=== PATIENT | male | born 1950 | race Two or more races ===

== ENCOUNTER 2016-06-16 00:02 | Emergency (ER) | payer MEDICARE, OTHER ==
[~2016-06-16] VITALS: Ht 170.2 cm; Wt 44.9 kg
[2016-06-16] MEDS ORDERED: HYDROCODONE/APAP 10/325MG 1 EA TABLET ONE (03:06)
[2016-06-16] MEDS ORDERED: HYDROCODONE/APAP 10/325MG 1 EA TABLET PO ONE (03:30)
[2016-06-16 04:03] VITALS: BP 106/53
== END 2016-06-16 04:03 | disposition home or self-care (01) ==
LOC: ER 00:04
DX: M54.5 Low back pain (principal); G89.29 Other chronic pain; I10 Essential (primary) hypertension; J45.909 Unspecified asthma, uncomplicated
CPT/HCPCS: 99283; A4606; Z7610

== ENCOUNTER 2020-11-22 11:33 | Inpatient (IN) | payer MEDICARE, OTHER ==
[~2020-11-22] VITALS: Ht 170.2 cm; Wt 57.6 kg
[2020-11-22] MEDS ORDERED: IV NS 0.9% 1,000 ML BAG IV ONE (12:00)
[2020-11-22 12:19] LABS: BASOPHILS % (AUTO) 0.8 % (0.0-2.0); EOSINOPHILS % (AUTO) 4.9 % (0.0-6.0); HEMATOCRIT 36 % (39-51); LYMPHOCYTES # (AUTO) 1.6 /CMM (0.8-4.8); LYMPHOCYTES % (AUTO) 31.4 % (20.0-44.0); MEAN CORPUSCULAR HGB CONC 33 g/dl (31.0-36.0); MEAN CORPUSCULAR VOLUME 91 fL (80-96); MONOCYTES # (AUTO) 0.7 /CMM (0.1-1.30); MONOCYTES % (AUTO) 13.9 % (2.0-12.0); NEUTROPHILS # (AUTO) 2.4 /CMM (1.8-8.9); PLATELET COUNT (AUTO) 223 /CMM (150-450); RED BLOOD CELL COUNT(AUTO) 3.97 MIL/uL (4.5-6.0)
[2020-11-22 12:20] LABS: BILIRUBIN,URINE Negative (NEGATIVE); COLOR,URINE YELLOW (YELLOW); LEUKOCYTE ESTERASE ,URINE Small (NEGATIVE); NITRITE, URINE Positive (NEGATIVE); PROTEIN,URINE Negative (NEGATIVE); UGLUCOSE Negative (NEGATIVE); UROBILINOGEN,URINE 0.2 EU/dL (0.2)
[2020-11-22 12:26] LABS: CALCIUM, SERUM 8.9 mg/dL (8.5-10.1); CARBON DIOXIDE 29 mmol/L (21-32); CHLORIDE 102 mmol/L (98-107); CREATININE 1.3 mg/dL (0.6-1.3); GLUCOSE 99 mg/dL (74-106); POTASSIUM 4.5 mmol/L (3.5-5.1); SODIUM SERUM 139 mmol/L (136-145); UREA NITROGEN, BLOOD 14 mg/dL (7-18)
[2020-11-22] MEDS ORDERED: CEFTRIAXONE 1GM BAG (ER ONLY) 50 ML IV ONE (12:37)
[2020-11-22 12:39] LABS: ALANINE AMINOTRANSFERASE 19 U/L (12-78); ALBUMIN 3.6 g/dL (3.4-5.0); ALKALINE PHOSPHATASE 84 U/L (46-116); ASPARTATE AMINOTRANSFERASE 16 U/L (15-37); BILIRUBIN,DIRECT 0.1 mg/dL (0.0-0.2); BILIRUBIN,TOTAL 0.4 mg/dL (0.2-1.0); LIPASE 96 U/L (73-393); TOTAL PROTEIN, SERUM 7.1 g/dL (6.4-8.2)
[2020-11-22 12:48] LABS: BACTERIA,URINE Few /HPF (None Seen); SQUAMOUS EPITHELIAL CELL,UR Rare /HPF (None Seen)
[2020-11-22] MEDS ORDERED: TADA5TAB2 PO (12:58)
[2020-11-22] MEDS ORDERED: TRIA10.8 NS (12:58)
[2020-11-22] MEDS ORDERED: OXYC15TA2 PO (12:58)
[2020-11-22] MEDS ORDERED: CHOL200010 PO (12:58)
[2020-11-22] MEDS ORDERED: TERA10CA4 PO (12:58)
[2020-11-22] MEDS ORDERED: CELE200C PO (12:58)
[2020-11-22] MEDS ORDERED: CAPT25TA3 PO (12:58)
[2020-11-22] MEDS ORDERED: ONDA4TAB5 PO (12:58)
[2020-11-22] MEDS ORDERED: GABA400C PO (12:58)
[2020-11-22] MEDS ORDERED: DOCU-141 PO (12:58)
[2020-11-22] MEDS ORDERED: NITR1OIN2 TD (12:58)
[2020-11-22] MEDS ORDERED: METH-647 PO (12:58)
[2020-11-22] MEDS ORDERED: LIDOCAINE PATCH TD (12:58)
[2020-11-22] MEDS ORDERED: CYAN10006 IJ (12:58)
[2020-11-22] MEDS ORDERED: ASCO100031 PO (12:58)
[2020-11-22] MEDS ORDERED: CALC-1180 PO (12:58)
[2020-11-22] MEDS ORDERED: CEFTRIAXONE 1GM BAG (ER ONLY) 1 GM/50 ML PIGGYBACK IV ONE (13:00)
[2020-11-22] MEDS ORDERED: NITROGLYCERIN 30 GM TUBE TD PRN (15:00)
[2020-11-22] MEDS ORDERED: CAPTOPRIL 25 MG TABLET PO PRN (15:00)
[2020-11-22] MEDS ORDERED: TRIAMCINOLONE NASAL SPRAY 16.5 GM INHALER NS PRN (15:30)
[2020-11-22 16:00] VITALS: BP 126/55
[2020-11-22] MEDS: CELECOXIB 100 MG CAPSULE PO SCH (17:00)
[2020-11-22] MEDS: CHOLECALCIFEROL 1,000 UNIT TABLET (VIT D3) PO SCH (17:06)
[2020-11-22] MEDS: CALCIUM CARB 600MG /VIT D 1 EACH TABLET PO SCH (17:07)
[2020-11-22] MEDS: GABAPENTIN 400 MG CAPSULE PO SCH (17:07)
[2020-11-22] MEDS: oxyCODONE IR immediate release 5 MG PO PRN ×2 (17:14→21:25)
[2020-11-22 20:18] VITALS: BP 153/61
[2020-11-22] MEDS: METHOCARBAMOL (500MG) 500 MG TABLET PO SCH (21:23)
[2020-11-22] MEDS: TERAZOSIN HCL 5 MG CAPSULE PO SCH (21:24)
[2020-11-22] MEDS: ONDANSETRON 4 MG TAB.RAPDIS PO PRN (21:25)
[2020-11-23] MEDS ORDERED: METOPROLOL TARTRATE 25 MG TABLET PO SCH
[2020-11-23] MEDS: GABAPENTIN 400 MG CAPSULE PO SCH ×4 (00:11→17:20)
[2020-11-23] MEDS: METHOCARBAMOL (500MG) 500 MG TABLET PO SCH (04:26)
[2020-11-23] MEDS: ONDANSETRON 4 MG TAB.RAPDIS PO PRN (04:29)
[2020-11-23] MEDS: oxyCODONE IR immediate release 5 MG PO PRN ×4 (06:38→22:55)
[2020-11-23 08:12] VITALS: BP 130/62
[2020-11-23] MEDS: CALCIUM CARB 600MG /VIT D 1 EACH TABLET PO SCH ×2 (08:27→17:20)
[2020-11-23] MEDS: DOCUSATE SODIUM 250 MG CAPSULE PO SCH (08:27)
[2020-11-23] MEDS: CHOLECALCIFEROL 1,000 UNIT TABLET (VIT D3) PO SCH ×2 (08:27→17:00)
[2020-11-23] MEDS: CELECOXIB 100 MG CAPSULE PO SCH ×2 (08:28→17:23)
[2020-11-23] MEDS: LIDOCAINE 5% (PATCH) 1 EA PATCH TP SCH (09:15)
[2020-11-23] MEDS: MULTIVITAMINS,THERAGRAN 1 UDTAB TABLET PO SCH (09:30)
[2020-11-23] MEDS ORDERED: ONDANSETRON 4 MG TAB.RAPDIS PO PRN (09:30)
[2020-11-23] MEDS: ASCORBIC ACID 500 MG TABLET PO SCH (09:30)
[2020-11-23] MEDS: BACLOFEN (10 MG) 10 MG TABLET PO SCH ×3 (10:06→17:20)
[2020-11-23] MEDS: CEFTRIAXONE 1 G in IV D5W 50 ML IV SCH (11:54)
[2020-11-23 16:03] VITALS: BP 148/76
[2020-11-23] MEDS ORDERED: CALCIUM CARB 600MG /VIT D 1 EACH TABLET PO SCH (17:00)
[2020-11-23] MEDS: METHOCARBAMOL (750MG) 750 MG TABLET PO SCH (17:00)
[2020-11-23 20:00] VITALS: BP 157/75
[2020-11-23] MEDS ORDERED: TERAZOSIN HCL 5 MG CAPSULE PO SCH (22:00)
[2020-11-23] MEDS: LamoTRIgine 100 MG TABLET PO SCH (22:11)
[2020-11-23] MEDS: METOPROLOL TARTRATE 25 MG TABLET PO SCH (22:11)
[2020-11-23] MEDS: TERAZOSIN HCL 5 MG CAPSULE PO SCH (22:12)
[2020-11-23] MEDS ORDERED: oxyCODONE IR immediate release 5 MG PO PRN (22:30)
[2020-11-24] MEDS: GABAPENTIN 400 MG CAPSULE PO SCH ×4 (00:52→17:06)
[2020-11-24] MEDS: oxyCODONE IR immediate release 5 MG PO PRN ×4 (04:58→23:43)
[2020-11-24 06:53] LABS: BASOPHILS % (AUTO) 0.5 % (0.0-2.0); EOSINOPHILS % (AUTO) 1.4 % (0.0-6.0); HEMATOCRIT 41 % (39-51); LYMPHOCYTES # (AUTO) 1.4 /CMM (0.8-4.8); LYMPHOCYTES % (AUTO) 18.4 % (20.0-44.0); MEAN CORPUSCULAR HGB CONC 34 g/dl (31.0-36.0); MEAN CORPUSCULAR VOLUME 90 fL (80-96); MONOCYTES # (AUTO) 0.8 /CMM (0.1-1.30); MONOCYTES % (AUTO) 10.7 % (2.0-12.0); NEUTROPHILS # (AUTO) 5.1 /CMM (1.8-8.9); PLATELET COUNT (AUTO) 271 /CMM (150-450); RED BLOOD CELL COUNT(AUTO) 4.57 MIL/uL (4.5-6.0); WHITE BLOOD COUNT (AUTO) 7.4 K/uL (4.3-11.0)
[2020-11-24 07:15] LABS: CALCIUM, SERUM 9.8 mg/dL (8.5-10.1); CREATININE 1.3 mg/dL (0.6-1.3); MAGNESIUM 1.6 mg/dL (1.8-2.4); POTASSIUM 3.5 mmol/L (3.5-5.1)
[2020-11-24] MEDS: DOCUSATE SODIUM 250 MG CAPSULE PO SCH (08:07)
[2020-11-24] MEDS: MULTIVITAMINS,THERAGRAN 1 UDTAB TABLET PO SCH (08:07)
[2020-11-24] MEDS: ASCORBIC ACID 500 MG TABLET PO SCH (08:07)
[2020-11-24] MEDS: BACLOFEN (10 MG) 10 MG TABLET PO SCH ×2 (08:07→20:25)
[2020-11-24] MEDS: CHOLECALCIFEROL 1,000 UNIT TABLET (VIT D3) PO SCH ×2 (08:08→17:00)
[2020-11-24] MEDS: CALCIUM CARB 600MG /VIT D 1 EACH TABLET PO SCH ×2 (08:08→17:00)
[2020-11-24] MEDS: CELECOXIB 100 MG CAPSULE PO SCH ×2 (08:08→17:06)
[2020-11-24] MEDS: METHOCARBAMOL (750MG) 750 MG TABLET PO SCH (08:08)
[2020-11-24 08:10] VITALS: BP 153/77
[2020-11-24] MEDS: LIDOCAINE 5% (PATCH) 1 EA PATCH TP SCH (08:10)
[2020-11-24] MEDS ORDERED: METHIMAZOLE (5MG) 5 MG TABLET PO SCH (09:00)
[2020-11-24] MEDS ORDERED: DOCUSATE SODIUM 250 MG CAPSULE PO SCH (09:00)
[2020-11-24] MEDS: Magnesium 1GM/D5W 100ML PREMIX 100 ML IV SCH ×2 (10:01→11:04)
[2020-11-24] MEDS: CEFTRIAXONE 1 G in IV D5W 50 ML IV SCH (12:09)
[2020-11-24] MEDS: METHOCARBAMOL (500MG) 500 MG TABLET PO SCH ×2 (15:12→21:46)
[2020-11-24 16:09] VITALS: BP 136/65
[2020-11-24] MEDS: ONDANSETRON HCL/PF 4 MG/2 ML VIAL IV PRN (17:24)
[2020-11-24] MEDS: ARIPIPRAZOLE 5 MG TABLET PO SCH (18:00)
[2020-11-24 20:00] VITALS: BP 157/81
[2020-11-24] MEDS: TERAZOSIN HCL 5 MG CAPSULE PO SCH (21:42)
[2020-11-24] MEDS: LamoTRIgine 100 MG TABLET PO SCH (21:43)
[2020-11-24] MEDS: METOPROLOL TARTRATE 25 MG TABLET PO SCH (21:44)
[2020-11-25] MEDS: GABAPENTIN 400 MG CAPSULE PO SCH ×3 (00:17→12:00)
[2020-11-25] MEDS: BACLOFEN (10 MG) 10 MG TABLET PO SCH ×2 (04:22→12:00)
[2020-11-25] MEDS: ONDANSETRON HCL/PF 4 MG/2 ML VIAL IV PRN (05:12)
[2020-11-25] MEDS: oxyCODONE IR immediate release 5 MG PO PRN ×2 (05:49→12:07)
[2020-11-25 06:56] LABS: BASOPHILS % (AUTO) 0.5 % (0.0-2.0); EOSINOPHILS % (AUTO) 2.7 % (0.0-6.0); HEMATOCRIT 39 % (39-51); HEMOGLOBIN 13.1 g/dL (13.5-17.5); LYMPHOCYTES # (AUTO) 0.9 /CMM (0.8-4.8); LYMPHOCYTES % (AUTO) 13.5 % (20.0-44.0); MEAN CORPUSCULAR HGB CONC 34 g/dl (31.0-36.0); MEAN CORPUSCULAR VOLUME 90 fL (80-96); MONOCYTES # (AUTO) 0.7 /CMM (0.1-1.30); MONOCYTES % (AUTO) 11.2 % (2.0-12.0); NEUTROPHILS # (AUTO) 4.6 /CMM (1.8-8.9); NEUTROPHILS % (AUTO) 72.1 % (43.0-81.0); PLATELET COUNT (AUTO) 218 /CMM (150-450); RED BLOOD CELL COUNT(AUTO) 4.31 MIL/uL (4.5-6.0); WHITE BLOOD COUNT (AUTO) 6.4 K/uL (4.3-11.0)
[2020-11-25 08:04] LABS: CALCIUM, SERUM 8.7 mg/dL (8.5-10.1); CREATININE 1.2 mg/dL (0.6-1.3); MAGNESIUM 1.8 mg/dL (1.8-2.4); POTASSIUM 4.3 mmol/L (3.5-5.1)
[2020-11-25 08:37] VITALS: BP 124/79
[2020-11-25] MEDS: DOCUSATE SODIUM 250 MG CAPSULE PO SCH (09:00)
[2020-11-25] MEDS: ASCORBIC ACID 500 MG TABLET PO SCH (09:00)
[2020-11-25] MEDS: ARIPIPRAZOLE 5 MG TABLET PO SCH (09:00)
[2020-11-25] MEDS: CALCIUM CARB 600MG /VIT D 1 EACH TABLET PO SCH (09:00)
[2020-11-25] MEDS: CHOLECALCIFEROL 1,000 UNIT TABLET (VIT D3) PO SCH (09:00)
[2020-11-25] MEDS: MULTIVITAMINS,THERAGRAN 1 UDTAB TABLET PO SCH (09:00)
[2020-11-25] MEDS: CELECOXIB 100 MG CAPSULE PO SCH (09:00)
[2020-11-25] MEDS: LIDOCAINE 5% (PATCH) 1 EA PATCH TP SCH (09:01)
[2020-11-25] MEDS ORDERED: PIPERACILLIN /TAZOBACTAM 3.375 G in IV D5W 100 ML IV SCH (13:00)
[2020-11-25] MEDS ORDERED: CEFEPIME 1 GM in IV D5W 50 ML IV SCH (17:00)
== END 2020-11-25 15:00 | disposition left against medical advice (07) | DRG 73 ==
LOC: ER 11:37 → MED 13:27
PROVIDERS: ADMIT Legal Medicine
DX: G90.8 Other disorders of autonomic nervous system (principal); G93.41 Metabolic encephalopathy; N39.0 Urinary tract infection, site not specified; I10 Essential (primary) hypertension; J45.909 Unspecified asthma, uncomplicated; F03.90 Unspecified dementia, unspecified severity, without behavioral disturbance, psychotic disturbance, mood disturbance, and anxiety; Z20.822 Contact with and (suspected) exposure to COVID-19; N40.0 Benign prostatic hyperplasia without lower urinary tract symptoms; Z85.118 Personal history of other malignant neoplasm of bronchus and lung; E78.5 Hyperlipidemia, unspecified; Z87.828 Personal history of other (healed) physical injury and trauma; G89.4 Chronic pain syndrome; F32.9 Major depressive disorder, single episode, unspecified; Z88.5 Allergy status to narcotic agent; Z88.8 Allergy status to other drugs, medicaments and biological substances; Z91.011 Allergy to milk products; Z79.899 Other long term (current) drug therapy; B96.5 Pseudomonas (aeruginosa) (mallei) (pseudomallei) as the cause of diseases classified elsewhere; M79.7 Fibromyalgia; M19.90 Unspecified osteoarthritis, unspecified site; F25.0 Schizoaffective disorder, bipolar type
CPT/HCPCS: 36415; 80048-TC; 80076-TC; 81001; 83690-TC; 83735-TC; 84100-TC; 84484-TC; 85025-TC; 87081-TC; 87086-TC; 87186-TC; 97112-TC; 97116-TC; 97530-TC; G0378; J0692; J0696; J2405; J2543; J3475; J7040; J7060; Q0162

== ENCOUNTER 2022-08-13 16:20 | Inpatient (IN) | payer MEDICARE, OTHER ==
[~2022-08-13] VITALS: Ht 170.2 cm; Wt 54.9 kg
[~2022-08-13 16:20] MED LIST: ASCO100031 PO; CALC-1180 PO; CAPT25TA3 PO; CELE200C PO; CHOL200010 PO; CYAN10006 IJ; DOCU-141 PO; GABA400C PO; LIDOCAINE PATCH TD; METH-647 PO; NITR1OIN2 TD; ONDA4TAB5 PO; OXYC15TA2 PO; TADA5TAB2 PO; TERA10CA4 PO; TRIA10.8 NS
--- NOTE | 2022-08-13 16:30 | NUR ---
[id number] home c/o flu like symptoms since thursday. PLACED IN BED, AAOX4, BREATHING UNLABORED SATURATING AT 97%RA.
[2022-08-13] MEDS ORDERED: ONDANSETRON HCL/PF 4 MG/2 ML VIAL IVP ONE (17:00)
[2022-08-13] MEDS ORDERED: IV NS 0.9% 1,000 ML BAG IV ONE (17:00)
[2022-08-13] MEDS ORDERED: ONDANSETRON HCL/PF 4 MG/2 ML VIAL ONE (17:25)
--- NOTE | 2022-08-13 17:43 | NUR ---
BLOOD DRAWN AND SENT TO LAB
--- NOTE | 2022-08-13 17:49 | NUR ---
SWAB FOR COVID19 AND URINE SAMPLE SENT TO LAB
[2022-08-13 17:51] LABS: BASOPHILS % (AUTO) 0.2 % (0.0-2.0); EOSINOPHILS % (AUTO) 0.4 % (0.0-6.0); HEMATOCRIT 39 % (39-51); HEMOGLOBIN 12.5 g/dL (13.5-17.5); LYMPHOCYTES # (AUTO) 0.6 K/uL (0.8-4.8); LYMPHOCYTES % (AUTO) 9.9 % (20.0-44.0); MEAN CORPUSCULAR HGB CONC 32 g/dl (31.0-36.0); MEAN CORPUSCULAR VOLUME 89 fL (80-96); MONOCYTES # (AUTO) 0.5 K/uL (0.1-1.30); MONOCYTES % (AUTO) 9.1 % (2.0-12.0); NEUTROPHILS # (AUTO) 4.6 K/uL (1.8-8.9); NEUTROPHILS % (AUTO) 80.4 % (43.0-81.0); PLATELET COUNT (AUTO) 247 K/uL (150-450); RED BLOOD CELL COUNT(AUTO) 4.36 MIL/uL (4.5-6.0); WHITE BLOOD COUNT (AUTO) 5.7 K/uL (4.3-11.0)
[2022-08-13 18:02] LABS: CALCIUM, SERUM 8.9 mg/dL (8.5-10.1); CARBON DIOXIDE 28 mmol/L (21-32); CHLORIDE 101 mmol/L (98-107); CREATININE 1.3 mg/dL (0.6-1.3); GLUCOSE 114 mg/dL (74-106); POTASSIUM 3.8 mmol/L (3.5-5.1); SODIUM SERUM 137 mmol/L (136-145); UREA NITROGEN, BLOOD 17 mg/dL (7-18)
[2022-08-13 18:16] LABS: ALANINE AMINOTRANSFERASE 18 U/L (12-78); ALBUMIN 3.7 g/dL (3.4-5.0); ALKALINE PHOSPHATASE 95 U/L (46-116); ASPARTATE AMINOTRANSFERASE 22 U/L (15-37); BILIRUBIN,DIRECT 0.1 mg/dL (0.0-0.2); BILIRUBIN,TOTAL 0.4 mg/dL (0.2-1.0); TOTAL PROTEIN, SERUM 7.9 g/dL (6.4-8.2)
--- NOTE | 2022-08-13 19:42 | NUR ---
[facility] PAGED FOR PANEL CALL DR KEENE HAND WOVEN CARPET AND RUG MENDER
[2022-08-13 20:02] LABS: BILIRUBIN,URINE NEGATIVE (NEGATIVE); COLOR,URINE YELLOW (YELLOW); LEUKOCYTE ESTERASE ,URINE TRACE (NEGATIVE); NITRITE, URINE NEGATIVE (NEGATIVE); PROTEIN,URINE NEGATIVE (NEGATIVE); UGLUCOSE NEGATIVE (NEGATIVE); UROBILINOGEN,URINE 0.2 EU/dL (0.2)
[2022-08-13 20:10] LABS: RBC,URINE 21-50 /HPF (0-2)
[2022-08-13 20:11] LABS: BACTERIA,URINE None seen /HPF (None Seen)
[2022-08-13 20:12] LABS: SPERM,URINE Moderate /HPF (None Seen); SQUAMOUS EPITHELIAL CELL,UR 0-2 /HPF (None Seen)
[2022-08-13] MEDS ORDERED: ACETAMINOPHEN 325 MG TABLET PO PRN (20:30)
[2022-08-13] MEDS ORDERED: TRIAMCINOLONE ACETONIDE NS PRN (20:30)
[2022-08-13] MEDS ORDERED: MAG HYDROX/AL HYDROX/SIMETH 30 ML UDC PO PRN (20:30)
[2022-08-13] MEDS ORDERED: Z GUARD REMEDY 4 OZ OINT TP PRN (20:30)
[2022-08-13] MEDS ORDERED: ONDANSETRON HCL/PF 4 MG/2 ML VIAL IVP PRN (20:30)
[2022-08-13] MEDS ORDERED: MAGNESIUM HYDROXIDE 30 ML UDC PO PRN (20:30)
[2022-08-13] MEDS ORDERED: NITROGLYCERIN PACKET 1 GM PACKET TD PRN (20:30)
[2022-08-13] MEDS ORDERED: CAPTOPRIL 25 MG TABLET PO PRN (20:30)
--- NOTE | 2022-08-13 20:51 | NUR ---
REPORT GIVEN TO KAREN ASCENCIO ROOM 323-1 FOR MARCUS
[2022-08-13] MEDS: METHOCARBAMOL (500MG) 500 MG TABLET PO SCH ×2 (21:00→22:24)
--- NOTE | 2022-08-13 21:21 | NUR ---
TRANSFERRED TO 323 IN STABLE CONDITION
[2022-08-13] MEDS ORDERED: ONDANSETRON 4 MG TAB.RAPDIS PO PRN (21:30)
[2022-08-13] MEDS ORDERED: CEFTRIAXONE 1 G VIAL ONE (22:21)
[2022-08-13] MEDS: TERAZOSIN HCL 5 MG CAPSULE PO SCH (22:24)
[2022-08-13] MEDS: CEFTRIAXONE 1 G in IV D5W 50 ML IV SCH (22:25)
[2022-08-13] MEDS: IV NS 0.9% 1,000 ML IV PRN (22:28)
--- NOTE | 2022-08-13 22:30 | NUR ---
MS RETAIL LOAN ORIGINATOR ASSISTANT NOTE RECEIVED REPORT FROM ER-RN LISA. PATIENT WAS BROUGHT TO THE UNIT AT AROUND 2125 VIA STRETCHER, ACCOMPANIED DY 2 ER STAFF. PATIENT WAS ADMITTED D/T C/O FLU LIKE SYMPTOMS AND VOMITING SINCE THIS MORNING. DIRECTED TO RM. 323-1. PATIENT IS ALERT AND ORIENTED X4. ABLE TO COMMUNICATE NEEDS WITH THE STAFFS. AFEBRILE AND NOT IN ANY FORM OF ACUTE DISTRESS. WITH IV ACCESS ON LEFT FOREARM 20G-SL. ORIENTED TO NEW ENVIRONMENT. EXPLAINED ADMISSION PROCESS WHICH INCLUDES SKIN ASSESSMENT AND PATIENT AGREED. NOTED WITH ABRASIONS AND SCABS ON R HAND AND LEFT KNEE AND R LOWER LEG RASH. BELONGINGS AND VALUABLES CHECKED AND PROPERLY DOCUMENTED BY ASSIGNED STAFF. MEDICATED ORDERED. STARTED IV ATB, MONITORED FOR ANY ADVERSE REACTION. SAFETY MEASURES IN PLACE. KEPT BED IN LOCKED AND IN LOW POSITION. SIDE RAILS UP X 2. ADVISED TO USE THE CALL LIGHT WHEN IN NEED OF ASSISTANCE.
--- NOTE | 2022-08-13 22:45 | NUR ---
MS RN NOTE PATIENT REFUSED METHOCARBAMOL DESPITE EXPLAINING RISK AND CONSEQUENCES OF NOT TAKING ONE. HE SAID THAT HE STILL HAS ABDOMINAL PAIN WHICH MAY WORSEN SYMPTOM. RETURNED UNOPENED MEDICATION IN MED ROOM.
[2022-08-13] MEDS ORDERED: CLONIDINE HCL 0.1 MG TABLET PO PRN (23:00)
[2022-08-13] MEDS: oxyCODONE IR immediate release 5 MG PO PRN (23:02)
[2022-08-13] MEDS: GABAPENTIN 400 MG CAPSULE PO SCH (23:02)
[2022-08-13 23:57] VITALS: BP 148/66
[2022-08-14] MEDS: oxyCODONE IR immediate release 5 MG PO PRN ×5 (03:57→21:32)
[2022-08-14] MEDS: METHOCARBAMOL (500MG) 500 MG TABLET PO SCH ×3 (04:09→21:31)
[2022-08-14] MEDS ORDERED: LIDOCAINE 5% (PATCH) 1 EA PATCH TP SCH ×2 (04:30→16:50)
[2022-08-14] MEDS: GABAPENTIN 400 MG CAPSULE PO SCH ×4 (05:08→23:22)
[2022-08-14 06:21] LABS: BASOPHILS % (AUTO) 0.2 % (0.0-2.0); EOSINOPHILS % (AUTO) 0.8 % (0.0-6.0); HEMATOCRIT 35 % (39-51); HEMOGLOBIN 11.5 g/dL (13.5-17.5); LYMPHOCYTES # (AUTO) 0.8 K/uL (0.8-4.8); LYMPHOCYTES % (AUTO) 13.4 % (20.0-44.0); MEAN CORPUSCULAR HGB CONC 33 g/dl (31.0-36.0); MEAN CORPUSCULAR VOLUME 90 fL (80-96); MONOCYTES # (AUTO) 0.9 K/uL (0.1-1.30); NEUTROPHILS # (AUTO) 4.4 K/uL (1.8-8.9); NEUTROPHILS % (AUTO) 70.6 % (43.0-81.0); PLATELET COUNT (AUTO) 220 K/uL (150-450); RED BLOOD CELL COUNT(AUTO) 3.89 MIL/uL (4.5-6.0); WHITE BLOOD COUNT (AUTO) 6.2 K/uL (4.3-11.0)
--- NOTE | 2022-08-14 06:23 | NUR ---
MS RN CLOSING NOTE PATIENT IN BED, ASLEEP BUT EASY TO AROUSE AND RESPONSIVE. ABLE TO MAKE NEEDS KNOWN. AFEBRILE AND NOT IN ANY FORM OF ACUTE DISTRESS. ON O2 INHALATION VIA NASAL CANNULA AT 1LPM. WITH IV ACCESS ON L FOREARM 20G RUNNING WITH NS AT 75ML/HR. MEDICATED ORDERED. ON IV ATB, MONITORED FOR ANY ADVERSE REACTION. ENCOURAGED TO TURN AND REPOSITION EVERY 2 HOURS AND TOLERATED TO PROMOTE PROPER CIRCULATION AND COMFORT. SAFETY MEASURES IN PLACE. KEPT BED IN LOCKED AND IN LOW POSITION. SIDE RAILS UP X2. ADVISED TO USE THE CALL LIGHT WHEN IN NEED OF ASSISTANCE. ALL NURSING NEEDS ATTENDED. ENDORSED TO INCOMING SHIFT FOR CONTINUITY OF CARE.
[2022-08-14 07:44] LABS: CALCIUM, SERUM 8.1 mg/dL (8.5-10.1); CREATININE 1.2 mg/dL (0.6-1.3); MAGNESIUM 1.9 mg/dL (1.8-2.4); PHOSPHORUS 2.9 mg/dL (2.5-4.9); POTASSIUM 3.7 mmol/L (3.5-5.1)
--- NOTE | 2022-08-14 07:45 | NUR ---
MS RN OPENING NOTE PATIENT IN BED, AWAKE AND VERBALLY RESPONSIVE. A/O X4 . NO SOB OR DISTRESS NOTED ON O2 INHALATION VIA NASAL CANNULA AT 1LPM. WITH IV ACCESS ON L FOREARM 20G RUNNING WITH NS AT 75ML/HR , NO C/O OF PAIN AND DISCOMFORT , SAFETY MEASURES IN PLACE. KEPT BED IN LOCKED AND IN LOW POSITION. SIDE RAILS UP X2. ADVISED TO USE THE CALL LIGHT WHEN IN NEED OF ASSISTANCE. ALL NURSING NEEDS ATTENDED. ENDORSED TO INCOMING SHIFT FOR CONTINUITY OF CARE.
[2022-08-14 08:00] VITALS: BP 143/78
[2022-08-14] MEDS: FLUTICASONE PROPIONATE 16 GM BOTTLE NS SCH ×2 (08:28→08:39)
[2022-08-14] MEDS: CELECOXIB 100 MG CAPSULE PO SCH ×2 (08:29→17:26)
[2022-08-14] MEDS: DOCUSATE SODIUM 100 MG CAPSULE PO SCH (08:30)
[2022-08-14] MEDS: CALCIUM CARB 600MG /VIT D 1 EACH TABLET PO SCH ×3 (08:32→17:00)
[2022-08-14] MEDS ORDERED: LISINOPRIL (10MG) 10 MG TABLET PO PRN (09:00)
[2022-08-14] MEDS ORDERED: LIDOCAINE TOP SCH (09:00)
[2022-08-14] MEDS ORDERED: CYANOCOBALAMIN 1,000 MCG/ML VIAL IM SCH (09:00)
[2022-08-14] MEDS ORDERED: ONDANSETRON 4 MG TAB.RAPDIS SL PRN (11:00)
[2022-08-14] MEDS ORDERED: AZITHROMYCIN 250 MG TABLET PO ONE (11:00)
[2022-08-14] MEDS: LamoTRIgine 100 MG TABLET PO SCH ×2 (11:31→21:31)
--- NOTE | 2022-08-14 12:03 | NUR ---
RN NOTES PATIENT C/O OF PAIN AT THIS TIME 02/15 AND PATTERN CHART WRITER AMANDA HDZ AWARE AND HE SAID ITS OK TO GIVE THE OXY IR
[2022-08-14] MEDS: BACLOFEN (10 MG) 10 MG TABLET PO SCH ×2 (13:29→19:54)
[2022-08-14] MEDS: IV NS 0.9% 1,000 ML IV PRN (13:32)
[2022-08-14] MEDS: LIDOCAINE 5% (PATCH) 1 EA PATCH TP SCH (18:06)
--- NOTE | 2022-08-14 18:59 | NUR ---
MS RN CLOSING NOTE PATIENT IN BED, AWAKE AND VERBALLY RESPONSIVE. A/O X4 . NO SOB OR DISTRESS NOTED ON O2 INHALATION VIA NASAL CANNULA AT 1LPM. WITH IV ACCESS ON L FOREARM 20G RUNNING WITH NS AT 75ML/HR , OF PAIN AND DISCOMFORT PAIN MEDICATIONS ORDERED , STARTED ON PO ATB OF ZITHROMAX , SAFETY MEASURES IN PLACE. KEPT BED IN LOCKED AND IN LOW POSITION. SEEN BY REHAB AND UNABLE TO PARTICIPATE DUE TO WEAKNESS , SIDE RAILS UP X2. ADVISED TO USE THE CALL LIGHT WHEN IN NEED OF ASSISTANCE. ALL NURSING NEEDS ATTENDED. ENDORSED TO INCOMING SHIFT FOR CONTINUITY OF CARE.
--- NOTE | 2022-08-14 19:30 | NUR ---
MS RN OPENING NOTE RECEIVED PT AWAKE IN BED. A/O X4 AND ABLE TO MAKE NEEDS KNOWN. PT ON O2 @ 1 LPM VIA NC, TOLERATING WELL. NO SOB OR S/S OF RESPIRATORY DISTRESS. BREATHING EVEN AND UNLABORED. IV ACCESS LFA 20G RUNNING NS @ 75 ML/HR, INTACT AND PATENT. SAFETY PRECAUTIONS IN PLACE. BED IN LOWEST LOCKED POSITION, HOB ELEVATED, SIDE RAILS UP X3, AND CALL LIGHT AND TABLE WITHIN REACH. ALL NEEDS MET AT THIS TIME.
[2022-08-14] MEDS: CEFTRIAXONE 1 G in IV D5W 50 ML IV SCH (19:54)
[2022-08-14 20:00] VITALS: BP 158/77
--- NOTE | 2022-08-14 20:46 | NUR ---
RN NOTE PT NOTED WITH BP 158/77. CLONIDINE ORDERED FOR SBP>150. PT IS REFUSING MEDICATION AT THIS TIME. EXPLAINED RISKS OF NOT TAKING BP MEDICATION ORDERED. PT VERBALIZED UNDERSTANDING AND STILL REFUSED. CHARGE NURSE MAXX AWARE.
[2022-08-14] MEDS: METOPROLOL TARTRATE 25 MG TABLET PO SCH (21:31)
[2022-08-14] MEDS: TERAZOSIN HCL 5 MG CAPSULE PO SCH (21:31)
--- NOTE | 2022-08-14 21:32 | NUR ---
RN NOTE PT COMPLAINED OF LOWER BACK PAIN 02/15. ADMINISTERED OXY IR 15 MG FOR SEVERE PAIN ORDERED. MADE COMFORTABLE IN BED. ALL NEEDS MET AT THIS TIME.
--- NOTE | 2022-08-15 01:55 | NUR ---
eda rn note because of patient history of chronic pain, etc. patient still c/o pain c/o 12/15, generalized back, shoulder, arms. Given OxyIR 15 mg as ordered PRN for pain at this time before I go to break. Addendum: 08/16/22 at 0433 by MERVIN PIERCE RN disregard. wrong date.
[2022-08-15] MEDS: BACLOFEN (10 MG) 10 MG TABLET PO SCH ×3 (03:04→19:31)
[2022-08-15] MEDS: oxyCODONE IR immediate release 5 MG PO PRN ×7 (03:04→21:51)
[2022-08-15] MEDS: METHOCARBAMOL (500MG) 500 MG TABLET PO SCH ×3 (05:13→21:19)
[2022-08-15] MEDS: IV NS 0.9% 1,000 ML IV PRN ×2 (05:13→18:50)
[2022-08-15] MEDS: GABAPENTIN 400 MG CAPSULE PO SCH ×4 (05:13→23:59)
--- NOTE | 2022-08-15 06:18 | NUR ---
RN NOTE PT REQUESTED TYLENOL FOR BREAKTHROUGH PAIN OF LOWER BACK. ADMINISTERED TYLENOL 650 MG FOR MILD PAIN ORDERED. MADE COMFORTABLE IN BED. WARM BLANKET PROVIDED. ALL NEEDS MET AT THIS TIME.
--- NOTE | 2022-08-15 06:52 | NUR ---
MS RN CLOSING NOTE PT AWAKE IN BED. A/O X4 AND ABLE TO MAKE NEEDS KNOWN. PT ON O2 @ 1 LPM VIA NC, TOLERATING WELL. NO SOB OR S/S OF RESPIRATORY DISTRESS. BREATHING EVEN AND UNLABORED. IV ACCESS LFA 20G RUNNING NS @ 75 ML/HR, INTACT AND PATENT. ALL DUE MEDS GIVEN ORDERED. KEPT CLEAN AND DRY. SAFETY PRECAUTIONS IN PLACE AT ALL TIMES. BED IN LOWEST LOCKED POSITION, HOB ELEVATED, SIDE RAILS UP X3, AND CALL LIGHT AND TABLE WITHIN REACH. ALL NEEDS MET AT THIS TIME AND WILL ENDORSE TO ONCOMING NURSE FOR MARCUS.
--- NOTE | 2022-08-15 07:50 | NUR ---
MS RN OPENING NOTE (DAYSHIFT) PATIENT IN BED, AWAKE AND VERBALLY RESPONSIVE. A/O X4 . NO SOB OR DISTRESS NOTED ON O2 INHALATION VIA NASAL CANNULA AT 2 LPM. PT HAS IV ACCESS ON L FOREARM 20G INFUSING WITH NS AT 75 ML/HR. PATIENT ADMITS TO MILD BACK PAIN AT THE MOMENT. SAFETY MEASURES IN PLACE. BED IN LOCKED AND IN LOW POSITION. SIDE RAILS UP X 2. ADVISED TO USE THE CALL LIGHT WHEN IN NEED OF ASSISTANCE. WILL CONTINUE TO CARE FOR AND MONITOR PATIENT PER HOSPITALIST'S POC.
[2022-08-15 08:00] VITALS: BP 101/72
[2022-08-15 08:46] LABS: BASOPHILS % (AUTO) 0.1 % (0.0-2.0); EOSINOPHILS % (AUTO) 0.8 % (0.0-6.0); HEMATOCRIT 35 % (39-51); HEMOGLOBIN 11.5 g/dL (13.5-17.5); LYMPHOCYTES # (AUTO) 0.9 K/uL (0.8-4.8); LYMPHOCYTES % (AUTO) 17.9 % (20.0-44.0); MEAN CORPUSCULAR HGB CONC 33 g/dl (31.0-36.0); MEAN CORPUSCULAR VOLUME 89 fL (80-96); MONOCYTES # (AUTO) 0.5 K/uL (0.1-1.30); MONOCYTES % (AUTO) 8.7 % (2.0-12.0); NEUTROPHILS # (AUTO) 3.8 K/uL (1.8-8.9); NEUTROPHILS % (AUTO) 72.5 % (43.0-81.0); PLATELET COUNT (AUTO) 203 K/uL (150-450); RED BLOOD CELL COUNT(AUTO) 3.97 MIL/uL (4.5-6.0); WHITE BLOOD COUNT (AUTO) 5.2 K/uL (4.3-11.0)
[2022-08-15] MEDS: FLUTICASONE PROPIONATE 16 GM BOTTLE NS SCH ×2 (08:46→08:58)
[2022-08-15] MEDS: DOCUSATE SODIUM 100 MG CAPSULE PO SCH (08:47)
[2022-08-15] MEDS: LamoTRIgine 100 MG TABLET PO SCH ×2 (08:47→21:19)
[2022-08-15] MEDS: CALCIUM CARB 600MG /VIT D 1 EACH TABLET PO SCH ×2 (08:47→17:06)
[2022-08-15] MEDS: CELECOXIB 100 MG CAPSULE PO SCH ×2 (08:47→17:07)
[2022-08-15 09:36] LABS: ALBUMIN 2.7 g/dL (3.4-5.0); BILIRUBIN,TOTAL 0.4 mg/dL (0.2-1.0); CREATININE 1.2 mg/dL (0.6-1.3); MAGNESIUM 1.9 mg/dL (1.8-2.4); POTASSIUM 3.6 mmol/L (3.5-5.1); TOTAL PROTEIN, SERUM 6.4 g/dL (6.4-8.2)
[2022-08-15] MEDS: AZITHROMYCIN 250 MG TABLET PO SCH (10:46)
[2022-08-15] MEDS ORDERED: ACETAMINOPHEN 325 MG TABLET PO PRN (15:30)
[2022-08-15 16:00] VITALS: BP 144/81
[2022-08-15] MEDS ORDERED: ACETAMINOPHEN SUSP 80 MG/0.8 ML BOTTLE PO PRN (16:30)
[2022-08-15] MEDS ORDERED: ACETAMINOPHEN 650 MG/20.3 ML UDC PO PRN (17:00)
[2022-08-15] MEDS: LIDOCAINE 5% (PATCH) 1 EA PATCH TP SCH (17:09)
--- NOTE | 2022-08-15 19:30 | NUR ---
eda rn opening received patient in bed, a/ox3-4, no s/s of apparent distress on 2lpm of o2 via nc. reports burning 9/10 pain at this time on his back-- will medicate. R.FA running NS @75mls/hr. Safety in place-- Bed in lowest locked position, Side rails up X3, bed alarm in place, and call light within reach. Patient oriented in the use and encouraged the use of call light. Will continue with patient's plan of care.
--- NOTE | 2022-08-15 19:35 | NUR ---
MS RN CLOSING NOTE (DAYSHIFT) PATIENT IN BED, AWAKE AND VERBALLY RESPONSIVE. A/O X 4. NO SOB NOR DISTRESS NOTED. ON O2 INHALATION VIA NASAL CANNULA AT 2 LPM. PT HAS IV ACCESS ON L FOREARM 20G INFUSING WITH NS AT 75ML/HR , WITHOUT ANY C/O PAIN AND/OR DISCOMFORT. PAIN MEDICATIONS GIVEN ORDERED. SAFETY MEASURES IN PLACE. KEPT BED IN LOCKED AND IN LOW POSITION. SEEN BY PHYSICAL THERAPY. SIDE RAILS UP X2. ADVISED TO USE THE CALL LIGHT WHEN IN NEED OF ASSISTANCE. ALL NURSING NEEDS ATTENDED. ENDORSED TO INCOMING SHIFT, SONU JEFFRIES, FOR CONTINUITY OF CARE.
--- NOTE | 2022-08-15 19:46 | NUR ---
noc rn note patient c/o 9/10 burning back pain during duyen report. given Oxy IR 5mg for breakthrough pain. will reassess.
[2022-08-15 20:00] VITALS: BP 163/71
[2022-08-15] MEDS: CEFTRIAXONE 1 G in IV D5W 50 ML IV SCH (21:08)
[2022-08-15] MEDS: METOPROLOL TARTRATE 25 MG TABLET PO SCH (21:49)
[2022-08-15] MEDS: TERAZOSIN HCL 5 MG CAPSULE PO SCH (21:49)
--- NOTE | 2022-08-15 21:51 | NUR ---
noc rn note because of patient history of chronic pain, etc. patient still c/o pain c/o 8/10, generalized back, shoulder, arms. Given OxyIR 15 mg as ordered PRN for pain.
[2022-08-16] MEDS: oxyCODONE IR immediate release 5 MG PO PRN ×5 (01:55→22:01)
--- NOTE | 2022-08-16 01:55 | NUR ---
noc rn note because of patient history of chronic pain, etc. patient still c/o pain c/o 12/15, generalized back, shoulder, arms. Given OxyIR 15 mg as ordered PRN for pain at this time before I go to break.
[2022-08-16] MEDS: BACLOFEN (10 MG) 10 MG TABLET PO SCH ×3 (04:10→19:58)
[2022-08-16] MEDS: METHOCARBAMOL (500MG) 500 MG TABLET PO SCH ×3 (05:26→20:36)
[2022-08-16] MEDS: GABAPENTIN 400 MG CAPSULE PO SCH ×4 (06:14→23:16)
--- NOTE | 2022-08-16 06:22 | NUR ---
noc rn note patient requested his Zofran, c/o of nausea given 4mg of Zofran ODT sublingual as ordered PRN. will re-assess.
[2022-08-16 07:00] VITALS: BP_SYST 138; BP_SYST 67; BP_DIAS 138; BP_DIAS 67
--- NOTE | 2022-08-16 07:05 | NUR ---
MS RN OPENING NOTE RECEIVED PATIENT IN BED, AWAKE AND VERBALLY RESPONSIVE. A/O X4. NO SOB OR DISTRESS NOTED, ON O2 INHALATION VIA NASAL CANNULA AT 2 LPM. PT HAS IV ACCESS ON LEFT FOREARM 20G INFUSING WITH NS AT 75 ML/HR. SAFETY MEASURES IN PLACE. BED IN LOCKED AND IN LOW POSITION. SIDE RAILS UP X 2. ADVISED TO USE THE CALL LIGHT WHEN IN NEED OF ASSISTANCE. WILL CONTINUE TO MONITOR THE PATIENT.
--- NOTE | 2022-08-16 07:25 | NUR ---
noc rn closing note needs attended. all scheduled medications administered. endorsed to SONU Lassiter for continuity of care.
[2022-08-16] MEDS: DOCUSATE SODIUM 100 MG CAPSULE PO SCH (08:44)
[2022-08-16] MEDS: LamoTRIgine 100 MG TABLET PO SCH ×2 (08:45→20:36)
[2022-08-16] MEDS: CALCIUM CARB 600MG /VIT D 1 EACH TABLET PO SCH ×2 (08:45→17:55)
[2022-08-16] MEDS: CELECOXIB 100 MG CAPSULE PO SCH ×2 (08:50→17:55)
[2022-08-16] MEDS: AZITHROMYCIN 250 MG TABLET PO SCH (10:09)
[2022-08-16] MEDS: TADALAFIL 5 MG PO SCH (14:56)
--- NOTE | 2022-08-16 15:41 | NUR ---
TESTED PATIENT'S SPO2 ON RA RESULTED TO 96-97. PATIENT AGREED TO REMOVE 2L OXYGEN SUPPORT.
[2022-08-16 16:46] VITALS: BP 147/88
[2022-08-16 17:03] VITALS: BP 145/85
--- NOTE | 2022-08-16 17:07 | NUR ---
VITAL SIGNS RE-TAKEN AND POSTED IN THE INTERVENTIONS
[2022-08-16] MEDS: LIDOCAINE 5% (PATCH) 1 EA PATCH TP SCH (17:56)
--- NOTE | 2022-08-16 18:43 | NUR ---
PATIENT PER ASSESSMENT IS LACTOSE INTOLERANT HENCE, REGULAR DIET ADJUSTED TO LACTOSE FREE, EFFECTIVE IMMEDIATELY. MD INFORMED
--- NOTE | 2022-08-16 19:16 | NUR ---
MS RN CLOSING NOTE PATIENT IN BED, AWAKE AND VERBALLY RESPONSIVE. A/O X 4. NO SOB NOR DISTRESS NOTED. ON RA SPO2 AT 97. IV ACCESS ON L FOREARM 20G INFUSING WITH NS AT 75ML/HR, NO C/O PAIN AND/OR DISCOMFORT AT THIS TIME. PAIN MEDICATIONS GIVEN PRESCRIBED. SAFETY MEASURES IN PLACE. KEPT BED IN LOCKED AND IN LOW POSITION. SIDE RAILS UP X2. CALL LIGHT WITHIN REACHED. ALL NURSING NEEDS ATTENDED. WILL ENDORSE TO ONCOMING DYEHOUSE WORKER RN , FOR CONTINUITY OF CARE.
[2022-08-16 20:00] VITALS: BP 133/71
[2022-08-16] MEDS: IV NS 0.9% 1,000 ML IV PRN (20:04)
--- NOTE | 2022-08-16 20:15 | NUR ---
RECEIVED PATIENT IN BED, ALERT/ORIENTED X4, ROOM AIR, CHRONIC PAIN LOW BACK PAIN, COMPLAINING OF DIARRHEA, LOOSE BM OOZING WHEN PASS GAS. PATIENT CLAIMED SINCE STARTING ROCEPHIN FOR UTI DIARRHEA HAS STARTED. ROCEPHIN WAS STARTED 08/13/22 AND LOOSE BM STARTED 08/16/22, REFUSING ROCEPHIN SCHEDULED AT 2029 AND REQUESTING ANTI DIARRHEAL MEDICATION. WILL NOTIFY
--- NOTE | 2022-08-16 20:25 | NUR ---
DR. KEENE, [facility] HOSPITALIST MADE AWARE OF ROCEPHIN REFUSAL, NEW ORDER OF IMODIUM 2MG PO Q4HRS PRN. ORDER NOTED AND CARRIED OUT.
[2022-08-16] MEDS ORDERED: LOPERAMIDE HCL (2 MG CAP) 2 MG CAPSULE PO PRN (20:30)
[2022-08-16] MEDS: CEFTRIAXONE 1 G in IV D5W 50 ML IV SCH (20:30)
[2022-08-16] MEDS: METOPROLOL TARTRATE 25 MG TABLET PO SCH (21:59)
[2022-08-16] MEDS: TERAZOSIN HCL 5 MG CAPSULE PO SCH (22:00)
--- NOTE | 2022-08-17 00:26 | NUR ---
IMODIUM DISCONTINUED, NON FORMULARY, CHANGED TO LOMOTIL 1 TAB PO Q4HRS PRN
[2022-08-17] MEDS: DIPHENOXYLATE HCL/ATROP SULF 1 UDTAB TABLET PO PRN ×3 (01:40→16:27)
[2022-08-17] MEDS: oxyCODONE IR immediate release 5 MG PO PRN ×4 (03:07→16:27)
[2022-08-17] MEDS: BACLOFEN (10 MG) 10 MG TABLET PO SCH ×2 (04:00→11:54)
[2022-08-17] MEDS: METHOCARBAMOL (500MG) 500 MG TABLET PO SCH ×2 (05:07→12:18)
[2022-08-17] MEDS: GABAPENTIN 400 MG CAPSULE PO SCH ×2 (05:38→11:54)
--- NOTE | 2022-08-17 05:44 | NUR ---
ALERT/ORIENTED X4, ROOM AIR, CHRONIC BACK PAIN, ROUND THE CLOCK PAIN MEDICATION, ROBAXIN, BACLOFEN, NEURONTIN, OXYCODONE IR 15 MG PO Q4HRS. COMPLAINING OF DIARRHEA, PATIENT BELIEVED ROCEPHIN IV FOR UTI IS THE CAUSE. REFUSED ROCEPHIN, REQUESTED ANTI DIARRHEAL MEDICATION. NOTIFIED DR. KEENE, HOSPITALIST, NEW ORDER OF LOMOTIL 1 TAB Q4HRS. HAS LOOSE BM X4, KEPT CLEAN, ZGUARD APPLIED. CONTINUE IVF, FOLLOW UP CULTURES, PT EVAL, JUKEBOX ROUTE DRIVER CONSULT, PATIENT LIVES ALONE WITH CAREGIVER.
[2022-08-17 06:14] LABS: BASOPHILS % (AUTO) 0.3 % (0.0-2.0); EOSINOPHILS % (AUTO) 6.9 % (0.0-6.0); HEMATOCRIT 33 % (39-51); LYMPHOCYTES # (AUTO) 1.3 K/uL (0.8-4.8); LYMPHOCYTES % (AUTO) 27.5 % (20.0-44.0); MEAN CORPUSCULAR HGB CONC 33 g/dl (31.0-36.0); MEAN CORPUSCULAR VOLUME 88 fL (80-96); MONOCYTES # (AUTO) 0.6 K/uL (0.1-1.30); MONOCYTES % (AUTO) 12.8 % (2.0-12.0); NEUTROPHILS # (AUTO) 2.5 K/uL (1.8-8.9); NEUTROPHILS % (AUTO) 52.5 % (43.0-81.0); PLATELET COUNT (AUTO) 201 K/uL (150-450); RED BLOOD CELL COUNT(AUTO) 3.77 MIL/uL (4.5-6.0); WHITE BLOOD COUNT (AUTO) 4.8 K/uL (4.3-11.0)
[2022-08-17 06:34] LABS: CALCIUM, SERUM 8.4 mg/dL (8.5-10.1); MAGNESIUM 1.8 mg/dL (1.8-2.4); PHOSPHORUS 3.4 mg/dL (2.5-4.9); POTASSIUM 3.4 mmol/L (3.5-5.1)
[2022-08-17 07:00] VITALS: BP 142/78
--- NOTE | 2022-08-17 07:15 | NUR ---
MS RN OPENING NOTE PATIENT IN BED, AWAKE AND VERBALLY RESPONSIVE. A/O X 4. NO SOB NOR DISTRESS NOTED. ON RA SPO2 AT 97. IV ACCESS ON L FOREARM 20G INFUSING WITH NS AT 75ML/HR, NO C/O PAIN AND/OR DISCOMFORT AT THIS TIME. PAIN MEDICATIONS GIVEN PRESCRIBED. SAFETY MEASURES IN PLACE. KEPT BED IN LOCKED AND IN LOW POSITION. SIDE RAILS UP X2. CALL LIGHT WITHIN REACHED. ALL NURSING NEEDS ATTENDED. WILL CONTINUE TO MONITOR
[2022-08-17] MEDS: CELECOXIB 100 MG CAPSULE PO SCH ×2 (08:21→16:10)
[2022-08-17] MEDS: DOCUSATE SODIUM 100 MG CAPSULE PO SCH (08:22)
[2022-08-17] MEDS: CALCIUM CARB 600MG /VIT D 1 EACH TABLET PO SCH ×3 (08:22→16:09)
[2022-08-17] MEDS: LamoTRIgine 100 MG TABLET PO SCH (08:22)
[2022-08-17] MEDS: TADALAFIL 5 MG PO SCH (09:19)
[2022-08-17] MEDS ORDERED: POTASSIUM CHLORIDE 20 MEQ TAB.PRT.SR PO SCH (10:00)
[2022-08-17] MEDS: AZITHROMYCIN 250 MG TABLET PO SCH (10:34)
[2022-08-17] MEDS: IV NS 0.9% 1,000 ML IV PRN (12:32)
[2022-08-17] MEDS ORDERED: DIPH1TAB28 PO (12:46)
[2022-08-17] MEDS ORDERED: LEVO500T90 PO (12:46)
[2022-08-17] MEDS ORDERED: LEVOFLOXACIN (250MG) 250 MG TABLET PO SCH (13:00)
--- NOTE | 2022-08-17 17:30 | NUR ---
NAPKIN MACHINE OPERATOR NOTES PATIENT IS WITH ORDER FOR DISCHARGE , A/OX4 AND AWARE ABOUT THE DISCHARGED ORDER , PATIENT IS GOING HOME AND TO CONTINUE IV ATB AT HOME FOR UTI , DISCHARGE INSTRUCTIONS PROVIDED REGARDING MEDICATIONS , RESUME ACTIVITIES , FOLLOW UP WITH PCP AND WHEN TO CALL 911 IN CASE OF EMERGENCY . PATIENT ABLE TO UNDERSTAND INSTRUCTIONS PROVIDED , PATIENT WILL BE DRIVE THRU ORDER TAKER BY AMBULANCE VIA GURNEY WITH AMBULANCE PERSONNEL , IV ACCESS REMOVED AND ID BAND ALL BELONGINGS WERE TAKEN AND FORM WAS SIGNED , DRIVE THRU ORDER TAKER AROUND 1715 AND PATIENT WITH NO SOB OR DISTRESS AND NO C/O OF PAIN AND DISCOMFORT , LEFT IN A STABLE CONDITION
== END 2022-08-17 17:14 | disposition home or self-care (01) | DRG 690 ==
LOC: ER 16:22 → MED 20:47
PROVIDERS: ADMIT Internal Medicine; ATTEND Nurse Practitioner Family
DX: N39.0 Urinary tract infection, site not specified (principal); J40 Bronchitis, not specified as acute or chronic; I25.10 Atherosclerotic heart disease of native coronary artery without angina pectoris; G40.909 Epilepsy, unspecified, not intractable, without status epilepticus; E78.5 Hyperlipidemia, unspecified; G62.9 Polyneuropathy, unspecified; I10 Essential (primary) hypertension; M79.7 Fibromyalgia; N40.0 Benign prostatic hyperplasia without lower urinary tract symptoms; Z20.822 Contact with and (suspected) exposure to COVID-19; R53.1 Weakness; B96.5 Pseudomonas (aeruginosa) (mallei) (pseudomallei) as the cause of diseases classified elsewhere
CPT/HCPCS: 36415; 71045-TC; 80048-TC; 80053-TC; 80076-TC; 81001; 83605-TC; 83735-TC; 84100-TC; 84484-TC; 85025-TC; 85730-TC; 87040-TC; 87081-TC; 87086-TC; 97530-TC; A4223; C9803; G0378; J0696; J2405; J3420; J7030; J7060; Q0162

== ENCOUNTER 2022-11-21 13:45 | Outpatient (CLI) | payer MEDICARE, OTHER ==
[~2022-11-21 13:45] MED LIST changes: +DIPH1TAB28 PO; +LEVO500T90 PO
[2022-11-21 14:14] LABS: CALCIUM, SERUM 9.1 mg/dL (8.5-10.1); CARBON DIOXIDE 30 mmol/L (21-32); CHLORIDE 100 mmol/L (98-107); CREATININE 1.3 mg/dL (0.6-1.3); GLUCOSE 97 mg/dL (74-106); SODIUM SERUM 135 mmol/L (136-145); UREA NITROGEN, BLOOD 25 mg/dL (7-18)
[2022-11-21 14:25] LABS: BILIRUBIN,URINE NEGATIVE (NEGATIVE); COLOR,URINE YELLOW (YELLOW); LEUKOCYTE ESTERASE ,URINE 3+ (NEGATIVE); NITRITE, URINE POSITIVE (NEGATIVE); PH,URINE 6.5 (5.0-8.0); PROTEIN,URINE NEGATIVE (NEGATIVE); UGLUCOSE NEGATIVE (NEGATIVE); UROBILINOGEN,URINE 0.2 EU/dL (0.2)
[2022-11-21 15:10] LABS: BASOPHILS % (AUTO) 0.5 % (0.0-2.0); EOSINOPHILS % (AUTO) 4.3 % (0.0-6.0); HEMATOCRIT 33 % (39-51); HEMOGLOBIN 10.9 g/dL (13.5-17.5); LYMPHOCYTES # (AUTO) 1.5 K/uL (0.8-4.8); MEAN CORPUSCULAR HGB CONC 33 g/dl (31.0-36.0); MEAN CORPUSCULAR VOLUME 90 fL (80-96); MONOCYTES # (AUTO) 0.9 K/uL (0.1-1.30); MONOCYTES % (AUTO) 13.1 % (2.0-12.0); NEUTROPHILS # (AUTO) 4.1 K/uL (1.8-8.9); NEUTROPHILS % (AUTO) 60.1 % (43.0-81.0); PLATELET COUNT (AUTO) 262 K/uL (150-450); WHITE BLOOD COUNT (AUTO) 6.8 K/uL (4.3-11.0)
[2022-11-21 15:14] LABS: BACTERIA,URINE 3+ /HPF (None Seen); SQUAMOUS EPITHELIAL CELL,UR 0-2 /HPF (None Seen); WBC,URINE 51-80 /HPF (0-3)
== END 2022-11-21 23:59 | disposition home or self-care (01) ==
LOC: LAB 13:45
PROVIDERS: ATTEND Internal Medicine Pulmonary Disease
DX: Z01.818 Encounter for other preprocedural examination (principal); I70.0 Atherosclerosis of aorta
CPT/HCPCS: 36415; 71045-TC; 80048-TC; 81001; 85025-TC; 85730-TC; 87086-TC

== ENCOUNTER 2024-02-05 07:01 | Inpatient (IN) | payer MEDICARE, OTHER ==
[~2024-02-05] VITALS: Ht 170.2 cm; Wt 54.0 kg
[~2024-02-05 07:01] MED LIST changes: +ACET-868 PO; +ASHWAGANDHA PO; +BACL10TA PO; +BIOT10004 PO; -CALC-1180 PO; +CALC500T52 PO; -CAPT25TA3 PO; -CHOL200010 PO; +COPP2CAP PO; -CYAN10006 IJ; -DIPH1TAB28 PO; +LACT1CAP71 PO; +LAMO100T17 PO; -LEVO500T90 PO; +LIDOCAINE 5%; -LIDOCAINE PATCH TD; +LUTE10TA PO; -METH-647 PO; +METH750T3 PO; +METO25TA20 PO; +MULT-594 PO; -NITR1OIN2 TD; -ONDA4TAB5 PO; -TRIA10.8 NS; +VITA-354 PO; +ZINC50TA69 PO; +[UNRECOGNIZED DRUG - OTHER] PO; +[UNRECOGNIZED DRUG - OTHER] PO; +[UNRECOGNIZED DRUG - OTHER] PO
[2024-02-05] MEDS ORDERED: LIDOCAINE 2%-EPI 1:100,000 30 ML VIAL ONE (07:04)
[2024-02-05] MEDS ORDERED: dexaMETHasone SOD PHOSPHATE 1 ML ONE ×2 (07:04→07:08)
[2024-02-05] MEDS ORDERED: VANCOMYCIN 1 GM VIAL ONE (07:04)
[2024-02-05] MEDS ORDERED: CALCIUM CHLORIDE 1,000 MG/10 ML DISP.SYRIN ONE (07:26)
[2024-02-05] MEDS ORDERED: FENTANYL PF 100MCG/2ML AMPUL ONE (07:26)
[2024-02-05] MEDS ORDERED: HYDROMORPHONE INJ 2 MG/ML DISP.SYRIN ONE (07:27)
[2024-02-05] MEDS ORDERED: VASOPRESSIN INJ 20 UNIT/ML VIAL ONE (07:27)
[2024-02-05] MEDS ORDERED: OXYMETAZOLINE HCL NASAL SPRAY 30 ML BOTTLE NS ONE (07:33)
[2024-02-05] MEDS: METHADONE HCL 10 MG TABLET PO ONE (09:00)
[2024-02-05] MEDS ORDERED: ONDANSETRON HCL/PF 4 MG/2 ML VIAL IV PRN (10:30)
[2024-02-05] MEDS ORDERED: IV NS 0.9% 1,000 ML IV PRN (10:30)
--- NOTE | 2024-02-05 11:00 | NUR ---
CARDIOLOGY TECHNICIAN NOTES PATIENT CAME IN VIA GURNEY ASSISTED BY SONU BURKS. PATIENT IS STATUS POST RECONSTRUCTIVE MANDIBULAR SURGERY. PT IS IN ROOM AIR WITH STABLE VITALS. PATIENT HAS RIGHT ANKLE BRACE. PATIENT WEARS AN EYEGLASS. ABLE TO MAKE NEEDS KNOWN. A/O X4. PATIENT HAS LEFT HAND IV SITE OF 20G WITH RUNNING IV OF NS AT 30 MLS/HR PATENT AND INFUSING WELL. PT IS WITH TROUBLE SPEAKING DUE TO SURGERY. HAS POSTERIOR SUPERFICIAL REDNESS WOUND, TOOK PHOTOS FOR DOCUMENTATION. UNIT PROTOCOL AND UNIT ADMISSION RULES PRESENTED. SAFETY MEASURES MAINTAINED BED SET TO LOW AND LOCKED BED ALARM ON SIDE RAILS UPX2 PLACED CALL LIGHT AND BEDSIDE TABLE WITHIN EASY REACH WILL CONTINUE POC TODAY.
--- NOTE | 2024-02-05 11:20 | NUR ---
RN NOTES PATIENT WAS UNABLE TO URINATE AND HAS LEFT ANKLE BRACE DUE TO INJURY. CHARGE NURSE ANGEL WAS INFORMED FOR A POSSIBLE CATHETER INSERTION. DR HERNANDEZ APPROVED. CATH INSERTION OF 16 MOHAWK DONE USING STERILE TECHNIQUE. HAD A 600 CC URINE OUT, RECORDED. PATIENT ABLE TO TOLERATE WELL AND VERBALIZE RELIEF FROM URGE.
[2024-02-05] MEDS ORDERED: ACETAMINOPHEN 325 MG TABLET PO PRN ×2 (11:30→16:30)
[2024-02-05] MEDS ORDERED: DORZ10DR11 EACHEYE (12:22)
[2024-02-05] MEDS ORDERED: ONDA8TAB13 PO (12:22)
[2024-02-05] MEDS ORDERED: EFIN4SOL TP (12:22)
[2024-02-05] MEDS ORDERED: TURM500C9 PO (12:22)
[2024-02-05] MEDS ORDERED: DICL1PAT11 TP (12:22)
[2024-02-05] MEDS ORDERED: SAW450CA7 PO (12:22)
[2024-02-05] MEDS ORDERED: BUPR8TAB4 SL (12:22)
[2024-02-05] MEDS ORDERED: VITA400C74 PO (12:22)
[2024-02-05] MEDS ORDERED: TRIA80CR2 TP (12:22)
[2024-02-05] MEDS ORDERED: GABA300C PO (12:22)
[2024-02-05] MEDS ORDERED: PRIM50TA27 PO (12:22)
[2024-02-05] MEDS ORDERED: NEURIVA PO (12:22)
[2024-02-05] MEDS ORDERED: CYAN10006 IM (12:22)
[2024-02-05] MEDS ORDERED: TEST200V3 IM (12:22)
[2024-02-05] MEDS ORDERED: GINGKO BILOBA PO (12:22)
[2024-02-05] MEDS ORDERED: CRAN250C PO (12:22)
[2024-02-05] MEDS ORDERED: DICL2SOL TP (12:22)
[2024-02-05] MEDS ORDERED: DIPH1TAB PO (12:22)
[2024-02-05] MEDS ORDERED: LIDO30AD10 TP (12:22)
[2024-02-05] MEDS ORDERED: L. A1TAB10 PO (12:22)
[2024-02-05] MEDS ORDERED: TERI2.4P SQ (12:22)
[2024-02-05] MEDS ORDERED: FLUO60SO3 TP (12:22)
[2024-02-05] MEDS ORDERED: TRIA10.8 NS (12:22)
[2024-02-05] MEDS ORDERED: NITR0.4T48 SL (12:22)
[2024-02-05] MEDS ORDERED: POLY17PO4 PO (12:22)
[2024-02-05] MEDS ORDERED: CALC-1036 PO (12:22)
[2024-02-05] MEDS: BUPRENORPHINE HCL 8 MG TAB.SUBL SL SCH ×2 (15:05→22:01)
[2024-02-05 16:07] VITALS: BP 160/81; TEMP 98.2; O2SAT 94
[2024-02-05] MEDS ORDERED: ZOLPIDEM TARTRATE 5 MG TABLET PO PRN (16:30)
[2024-02-05] MEDS ORDERED: MAG HYDROX/AL HYDROX/SIMETH 30 ML UDC PO PRN (16:30)
[2024-02-05] MEDS ORDERED: Z GUARD REMEDY 4 OZ OINT TP PRN (16:30)
[2024-02-05] MEDS ORDERED: MAGNESIUM HYDROXIDE 30 ML UDC PO PRN (16:30)
[2024-02-05] MEDS ORDERED: DIPHENOXYLATE HCL/ATROP SULF 1 UDTAB TABLET PO PRN (18:30)
[2024-02-05] MEDS ORDERED: DICLOFENAC EPOLAMINE TP PRN (18:30)
[2024-02-05] MEDS ORDERED: TRIAMCINOLONE ACETONIDE 0.025% 15 GM TUBE TP PRN (18:30)
[2024-02-05] MEDS ORDERED: POLYETHYLENE GLYCOL 3350 17 GM POWD.PACK PO SCH (18:30)
[2024-02-05] MEDS ORDERED: TESTOSTERONE CYPIONATE IM SCH (18:30)
[2024-02-05] MEDS ORDERED: PRIMIDONE 50 MG TABLET PO PRN (18:30)
[2024-02-05] MEDS ORDERED: ONDANSETRON 8 MG PO PRN (18:30)
[2024-02-05] MEDS ORDERED: FLUOCINONIDE 0.05% SOLN 60 ML BOTTLE TP PRN (18:30)
[2024-02-05] MEDS: oxyCODONE/APAP (5/325 MG) 1 UDTAB TABLET PO PRN (18:55)
--- NOTE | 2024-02-05 18:56 | NUR ---
RN NOTES PATIENT IS IN PAIN 10 OUT OF 10 AT LOWER BACK VERBALIZED. PATIENT HAS PRN ORDER OF PERCOCET 3/325 3 TAB Q6 HOURS FOR SEVERE PAIN. PATIENT IS ALLERGIC WITH CODEINE VERBALIZED. DR HERNANDEZ WAS INFORMED PHARMACY WAS INFORMED. OKAY TO GIVE. PT TOLERATED WELL. WILL ENDORSE TO PM SHIFT RN FOR CLOSE MONITORING.
--- NOTE | 2024-02-05 19:11 | NUR ---
MS RN CLOSING NOTE PATIENT IS AWAKE LYING DOWN IN BED. A/0 X 4. PATIENT IS STATUS POST RECONSTRUCTIVE MANDIBULAR SURGERY. PT IS IN ROOM AIR TOLERATING WELL. PATIENT HAS RIGHT ANKLE BRACE. PATIENT WEARS AN EYEGLASS. ABLE TO MAKE NEEDS KNOWN. HAS LEFT HAND IV SITE OF 20G WITH RUNNING IV OF NS AT 30 MLS/HR PATENT AND INFUSING WELL. PRSN PAIN MEDS FOR STANBY. FOR WOUND CONSULT AND PT EVAL TOMORROW. ALL NEEDS ATTENDED. SAFETY MEASURES MAINTAINED BED SET TO LOW AND LOCKED BED ALARM ON SIDE RAILS UPX2 PLACED CALL LIGHT AND BEDSIDE TABLE WITHIN EASY REACH. WILL ENDORSE TO INCOMING NURSE FOR CONTINUITY OF CARE.
[2024-02-05 20:00] VITALS: BP 148/77; TEMP 98.6; O2SAT 97
--- NOTE | 2024-02-05 20:00 | NUR ---
MS RN OPENING NOTES: RECEIVED PATIENT AWAKE IN BED, BED IN LOW POSITION CALL LIGHTS WITHIN REACH. NO COMPLAIN OF PAIN AND DISCOMFORT AT THIS TIME, ON ROOM AIR SATURATING WELL, PATIENT IS A/O X3-4 ABLE TO MAKE NEEDS KNOWN, ON PAIN MANAGEMENT, PATIENT IS S/P IS S/P REMOVAL OF INTERNAL FIXATOR OF MAXILLA AND MANDIBLE, IV LINE AT LFA#20WITH ONGOING 0.9NS@30ML/HR INFUSING WELL, ON GALVEZ CATHETER-10CC URINE OUTPUT, PATIENT KEPT CLEAN AND DRY ALL NEEDS MET WILL CONTINUE TO MONITOR.
[2024-02-05] MEDS: VANCOMYCIN 1 GM in IV D5W 250ml IV SCH (20:46)
[2024-02-05 20:48] VITALS: BP 105/66; TEMP 98.6; O2SAT 95
[2024-02-05] MEDS ORDERED: ACETAMINOPHEN 325 MG TABLET PO SCH (21:00)
[2024-02-05] MEDS: BACLOFEN (10 MG) 10 MG TABLET PO SCH (21:52)
[2024-02-05] MEDS: METHOCARBAMOL (750MG) 750 MG TABLET PO SCH (21:53)
[2024-02-05] MEDS: TERAZOSIN HCL 5 MG CAPSULE PO SCH (22:31)
[2024-02-05] MEDS: METOPROLOL TARTRATE 25 MG TABLET PO SCH (22:31)
[2024-02-05] MEDS: GABAPENTIN 300 MG CAPSULE PO SCH (23:44)
[2024-02-06] MEDS: ONDANSETRON HCL/PF 4 MG/2 ML VIAL IVP PRN (06:05)
--- NOTE | 2024-02-06 06:20 | NUR ---
MS SONU VILLANUEVA NOTES: PATIENT SLEEP IN BED COMFORTABLY, BED IN LOW POSITION CALL LIGHTS WITHIN REACH, NO COMPLAIN OF PAIN AND DISCOMFORT AT THIS TIME, ON ROOM AIR SATURATING WELL, PATIENT IS A/O X4 ABLE TO EXPRESS NEEDS, ON BED REST, PATIENT IS S/P REMOVAL OF INTERNAL FIXATOR MAXILLA AND MANDIBLE, NO BLEEDING WAS OBSERVED, IV LINE AT LFA#20 WITH ONGOING 0.9NSS@30ML/HR INFUSING WELL, ON GALVEZ CATHETER-1200 CC URINE OUTPUT, PATIENT KEPT CLEAN AND DRY ALL NEEDS MET WILL CONTINUE TO MONITOR.
[2024-02-06 06:38] LABS: BASOPHILS % (AUTO) 0.2 % (0.0-2.0); EOSINOPHILS % (AUTO) 0.2 % (0.0-6.0); HEMATOCRIT 29 % (39-51); HEMOGLOBIN 9.7 g/dL (13.5-17.5); LYMPHOCYTES # (AUTO) 1.2 K/uL (0.8-4.8); LYMPHOCYTES % (AUTO) 14.8 % (20.0-44.0); MEAN CORPUSCULAR HEMOGLOBIN 30 PG (26.0-33.0); MEAN CORPUSCULAR HGB CONC 33 g/dl (31.0-36.0); MEAN CORPUSCULAR VOLUME 90 fL (80-96); MONOCYTES % (AUTO) 13.1 % (2.0-12.0); NEUTROPHILS # (AUTO) 5.7 K/uL (1.8-8.9); NEUTROPHILS % (AUTO) 71.7 % (43.0-81.0); PLATELET COUNT (AUTO) 246 K/uL (150-450); RED BLOOD CELL COUNT(AUTO) 3.21 MIL/uL (4.5-6.0); RED CELL DISTRIBUTION WIDTH 13.2 % (11.5-15.0); WHITE BLOOD COUNT (AUTO) 7.9 K/uL (4.3-11.0)
[2024-02-06 06:51] LABS: CALCIUM, SERUM 8.3 mg/dL (8.5-10.1); CARBON DIOXIDE 26 mmol/L (21-32); CHLORIDE 106 mmol/L (98-107); GLUCOSE 99 mg/dL (74-106); MAGNESIUM 1.7 mg/dL (1.8-2.4); PHOSPHORUS 2.6 mg/dL (2.5-4.9); POTASSIUM 3.6 mmol/L (3.5-5.1); SODIUM SERUM 139 mmol/L (136-145); UREA NITROGEN, BLOOD 12 mg/dL (7-18)
--- NOTE | 2024-02-06 07:29 | NUR ---
RN OPENING NOTE Received pt in bed, awake. On room air, tolerating well. A/O x 3, able to make needs known, no c/o pain/discomfort at this time. IV access in LFA #20g, running NS at 30ml/hr. With peoples connected to urine bag draining via gravity yellow urine. Safety measures maintained. Will continue with plan of care.
[2024-02-06 08:00] VITALS: BP 152/60; TEMP 98.4; O2SAT 97
[2024-02-06] MEDS: CELECOXIB 100 MG CAPSULE PO SCH (08:36)
[2024-02-06] MEDS: LIDOCAINE 5% (PATCH) 1 EA PATCH TP SCH (08:36)
[2024-02-06] MEDS: MULTIVITAMINS,THERAGRAN 1 UDTAB TABLET PO SCH (08:36)
[2024-02-06] MEDS: ASCORBIC ACID 500 MG TABLET PO SCH (08:36)
[2024-02-06] MEDS: LamoTRIgine 100 MG TABLET PO SCH (08:36)
[2024-02-06] MEDS: ACIDOPHILUS/BULGARICUS 1 EACH TAB.CHEW PO SCH (08:36)
[2024-02-06] MEDS: TIMOLOL MAL/DORZOLAM HCL OPHTH 10 ML BOTTLE EACHEYE SCH (08:37)
[2024-02-06] MEDS: HEPARIN SODIUM, PORCINE 5000 UNITS/1 ML VIAL SQ SCH (08:37)
[2024-02-06] MEDS ORDERED: [UNRECOGNIZED DRUG - OTHER] PO SCH (09:00)
[2024-02-06] MEDS ORDERED: ASHWAGANDHA PO SCH (09:00)
[2024-02-06] MEDS ORDERED: TERIPARATIDE 20 MCG SQ SCH (09:00)
[2024-02-06] MEDS ORDERED: Medication Not On Formulary EA (Turmeric Root Extract (Turmeric) 500 MG) PO SCH (09:00)
[2024-02-06] MEDS ORDERED: Medication Not On Formulary EA (Tadalafil (Cialis) 5 MG) PO SCH (09:00)
--- NOTE | 2024-02-06 12:05 | NUR ---
TRAFFIC CONTROL SIGNALER NOTE Pt discharged to home in stable condition. A/O x 3, able to make needs known, no c/o pain/discomfort at this time. On room air, tolerating well. All belongings accounted for. Skin intact. Discharge packet at teaching given to pt, verbalized understanding. IV access removed, clean and dry dressing applied, no active bleeding noted. Name armband removed. Pt left the unit at 1200 via wheelchair accompanied by caregiver and Callum ASKEW. and Charge Nurse aware of discharge.
== END 2024-02-06 11:15 | disposition home or self-care (01) | DRG 496 ==
LOC: DS 07:01 → MED 11:07
PROVIDERS: ADMIT Student in an Organized Health Care Education/Training Program; ATTEND Student in an Organized Health Care Education/Training Program
PROC: 0NPW04Z Removal of Internal Fixation Device from Facial Bone, Open Approach (ICD-10-PCS; principal; 2024-02-05)
PROC: 0NUR07Z Supplement Maxilla with Autologous Tissue Substitute, Open Approach (ICD-10-PCS; 2024-02-05)
PROC: 0WB30ZX Excision of Oral Cavity and Throat, Open Approach, Diagnostic (ICD-10-PCS; 2024-02-05)
PROC: 0NBR0ZX Excision of Maxilla, Open Approach, Diagnostic (ICD-10-PCS; 2024-02-05)
PROC: 0NSR04Z Reposition Maxilla with Internal Fixation Device, Open Approach (ICD-10-PCS; 2024-02-05)
DX: T84.69XA Infection and inflammatory reaction due to internal fixation device of other site, initial encounter (principal); M87.9 Osteonecrosis, unspecified; Y83.8 Other surgical procedures as the cause of abnormal reaction of the patient, or of later complication, without mention of misadventure at the time of the procedure; Y92.009 Unspecified place in unspecified non-institutional (private) residence as the place of occurrence of the external cause; M27.2 Inflammatory conditions of jaws; N40.0 Benign prostatic hyperplasia without lower urinary tract symptoms; M19.90 Unspecified osteoarthritis, unspecified site; M79.7 Fibromyalgia; K21.9 Gastro-esophageal reflux disease without esophagitis; G90.4 Autonomic dysreflexia; H40.9 Unspecified glaucoma; G62.9 Polyneuropathy, unspecified; F41.9 Anxiety disorder, unspecified; I10 Essential (primary) hypertension; G89.4 Chronic pain syndrome; F32.A Depression, unspecified; E78.5 Hyperlipidemia, unspecified; D51.0 Vitamin B12 deficiency anemia due to intrinsic factor deficiency; Z87.828 Personal history of other (healed) physical injury and trauma; Z79.899 Other long term (current) drug therapy; Z88.5 Allergy status to narcotic agent; Z88.8 Allergy status to other drugs, medicaments and biological substances; Z91.011 Allergy to milk products
CPT/HCPCS: 36415; 71046; 80048-TC; 80053-TC; 81001; 83735-TC; 84100-TC; 85025-TC; 85610-TC; 85730-TC; 87081-TC; 87086-TC; 88305-TC; 88311-TC; 92526; 92611-TC; A4223; A4338; C1713; G0378; J1100; J1170; J2405; J2704; J2765; J3010; J3370; J3490; J7030; J7050; J7060

== ENCOUNTER 2024-07-29 08:03 | Inpatient (IN) | payer MEDICARE, OTHER ==
[~2024-07-29] VITALS: Ht 170.2 cm; Wt 48.1 kg
[~2024-07-29 08:03] MED LIST changes: +BUPR8TAB4 SL; +CALC-1036 PO; -CALC500T52 PO; -COPP2CAP PO; +CRAN250C PO; +CYAN10006 IM; +DICL1PAT11 TP; +DICL2SOL TP; +DIPH1TAB PO; -DOCU-141 PO; +DORZ10DR11 EACHEYE; +EFIN4SOL TP; +FLUO60SO3 TP; +GABA300C PO; -GABA400C PO; +GINGKO BILOBA PO; +L. A1TAB10 PO; -LACT1CAP71 PO; +LIDO30AD10 TP; -LIDOCAINE 5%; +NEURIVA PO; +NITR0.4T48 SL; +ONDA8TAB13 PO; -OXYC15TA2 PO; +POLY17PO4 PO; +PRIM50TA27 PO; +SAW450CA7 PO; +TERI2.4P SQ; +TEST200V3 IM; +TRIA10.8 NS; +TRIA80CR2 TP; +TURM500C9 PO; -VITA-354 PO; +VITA400C74 PO; -ZINC50TA69 PO; -[UNRECOGNIZED DRUG - OTHER] PO; -[UNRECOGNIZED DRUG - OTHER] PO; -[UNRECOGNIZED DRUG - OTHER] PO
[2024-07-29 09:04] LABS: PARTIAL THROMBOPLASTIN TIME 28.9 SEC (24.3-34.3); PROTHROMBIN TIME 10.6 SECS (9.2-11.1)
[2024-07-29] MEDS ORDERED: VANCOMYCIN 1 GM VIAL ONE (11:01)
[2024-07-29] MEDS ORDERED: LIDOCAINE 2%-EPI 1:100,000 30 ML VIAL ONE (11:01)
[2024-07-29] MEDS ORDERED: dexaMETHasone SOD PHOSPHATE 2 ML ONE (11:01)
[2024-07-29] MEDS: IV NS 0.9% 1,000 ML IV PRN (15:19)
[2024-07-29 16:58] VITALS: BP 106/67; TEMP 97.9; O2SAT 97
[2024-07-29] MEDS ORDERED: POLYETHYLENE GLYCOL 3350 17 GM POWD.PACK PO SCH (17:00)
[2024-07-29] MEDS ORDERED: PRIMIDONE 50 MG TABLET PO PRN (17:00)
[2024-07-29] MEDS: LamoTRIgine 100 MG TABLET PO SCH (17:50)
[2024-07-29] MEDS: GABAPENTIN 300 MG CAPSULE PO SCH (17:51)
[2024-07-29] MEDS: BUPRENORPHINE HCL 8 MG TAB.SUBL SL SCH (18:31)
[2024-07-29 20:00] VITALS: BP 128/71; TEMP 98.1; O2SAT 97
[2024-07-29] MEDS: METHOCARBAMOL (750MG) 750 MG TABLET PO SCH (20:17)
[2024-07-29] MEDS: BACLOFEN (10 MG) 10 MG TABLET PO SCH (20:18)
[2024-07-29] MEDS: HYDROMORPHONE 1 MG/1 ML DISP.SYRIN IV PRN (20:35)
[2024-07-29] MEDS: VANCOMYCIN 1 GM in IV D5W 250ml IV SCH (22:03)
[2024-07-29] MEDS: METOPROLOL TARTRATE 25 MG TABLET PO SCH (22:04)
[2024-07-29] MEDS ORDERED: TERAZOSIN HCL 5 MG CAPSULE ONE (23:22)
[2024-07-29] MEDS: TERAZOSIN HCL 5 MG CAPSULE PO SCH (23:41)
[2024-07-30] MEDS: ACETAMINOPHEN 325 MG TABLET PO PRN (05:16)
[2024-07-30] MEDS: ONDANSETRON HCL/PF 4 MG/2 ML VIAL IV PRN (05:41)
[2024-07-30 08:00] VITALS: BP 159/73; TEMP 97.9; O2SAT 100
[2024-07-30] MEDS: ACIDOPHILUS/BULGARICUS 1 EACH TAB.CHEW PO SCH (08:45)
[2024-07-30] MEDS: CELECOXIB 100 MG CAPSULE PO SCH (08:46)
[2024-07-30] MEDS: HYDROMORPHONE 1 MG/1 ML DISP.SYRIN IV PRN (10:23)
== END 2024-07-30 12:49 | disposition home or self-care (01) | DRG 496 ==
LOC: DS 08:03 → MED 14:51
PROC: 0NPW0JZ Removal of Synthetic Substitute from Facial Bone, Open Approach (ICD-10-PCS; principal; 2024-07-29)
PROC: 0N5T0ZZ Destruction of Right Mandible, Open Approach (ICD-10-PCS; 2024-07-29)
PROC: 0NST04Z Reposition Right Mandible with Internal Fixation Device, Open Approach (ICD-10-PCS; 2024-07-29)
PROC: 0WB30ZX Excision of Oral Cavity and Throat, Open Approach, Diagnostic (ICD-10-PCS; 2024-07-29)
PROC: 0NUT07Z Supplement Right Mandible with Autologous Tissue Substitute, Open Approach (ICD-10-PCS; 2024-07-29)
PROC: 0NUT0JZ Supplement Right Mandible with Synthetic Substitute, Open Approach (ICD-10-PCS; 2024-07-29)
DX: T84.69XA Infection and inflammatory reaction due to internal fixation device of other site, initial encounter (principal); S02.609K Fracture of mandible, unspecified, subsequent encounter for fracture with nonunion; Y83.8 Other surgical procedures as the cause of abnormal reaction of the patient, or of later complication, without mention of misadventure at the time of the procedure; Y92.009 Unspecified place in unspecified non-institutional (private) residence as the place of occurrence of the external cause; E78.5 Hyperlipidemia, unspecified; D51.0 Vitamin B12 deficiency anemia due to intrinsic factor deficiency; F32.A Depression, unspecified; G89.4 Chronic pain syndrome; F41.9 Anxiety disorder, unspecified; H40.9 Unspecified glaucoma; G90.4 Autonomic dysreflexia; N40.0 Benign prostatic hyperplasia without lower urinary tract symptoms; M79.7 Fibromyalgia; I10 Essential (primary) hypertension; Z79.899 Other long term (current) drug therapy; Z88.5 Allergy status to narcotic agent; Z88.8 Allergy status to other drugs, medicaments and biological substances; J32.0 Chronic maxillary sinusitis; K12.31 Oral mucositis (ulcerative) due to antineoplastic therapy; K13.70 Unspecified lesions of oral mucosa; X58.XXXD Exposure to other specified factors, subsequent encounter; M27.2 Inflammatory conditions of jaws
CPT/HCPCS: 36415; 85610-TC; 85730-TC; 88300-TC; 88305-TC; 88311-TC; A6253; G0378; J0461; J1100; J1171; J2405; J2704; J3370; J3490; J7060